=== PATIENT | male | born 1965 | race Caucasian/White ===

== ENCOUNTER 2021-01-04 09:44 | Emergency (ER) | payer OTHER ==
[~2021-01-04] VITALS: Ht 172.7 cm; Wt 82.0 kg
[2021-01-04] MEDS ORDERED: IBUPROFEN 800MG TABLET PO ONE (10:30)
[2021-01-04] MEDS ORDERED: AMOXICILLIN/POTASSIUM CLAVULANATE 875/125MG TAB PO ONE (10:30)
[2021-01-04 12:53] LABS: HEMATOCRIT. 39.1 % (42.0-52.0); MEAN CORPUSCULAR HEMOGLOBIN 30.3 pg (28.0-32.0); MEAN CORPUSCULAR VOLUME 91.2 fL (80.0-94.0); MEAN PLATELET VOLUME 8.9 fl (7.4-10.4); PLATELET 296 x1000/uL (130-400); RED BLOOD CELL COUNT 4.29 mill/uL (4.7-6.1); RED CELL DISTRIBUTION WIDTH 13.7 % (11.6-14.6)
[2021-01-04 13:22] LABS: PLATELET ESTIMATE NORMAL
[2021-01-04] MEDS ORDERED: AMOX-424 MT (13:48)
[2021-01-04] MEDS ORDERED: NAPR500T7 MT (13:48)
[2021-01-04 17:15] VITALS: BP 137/82
== END 2021-01-04 17:16 | disposition home or self-care (01) ==
LOC: ER 09:55
DX: L03.011 Cellulitis of right finger (principal)
CPT/HCPCS: 10060; 36415; 73620; 82962; 85025; 99284; A4217; Z7610